=== PATIENT | female | born 1930 | race Caucasian/White ===

== ENCOUNTER 2019-02-25 01:29 | Inpatient (IN) | payer MEDICARE, MEDICAID ==
[~2019-02-25] VITALS: Ht 152.4 cm; Wt 81.6 kg
--- NOTE | 2019-02-25 01:35 | NUR ---
PT [id number] C/O AMS W/ FEVER X 5 HOURS. PER EMS PT AXO3 AND NOW PT IS AXO1. RESPIRATIONS TACHYPNIC AND UNLABORED. PT PUT ON THE DATA STEWARD AND PULSE OX. PENDING EVAL FROM [facility].
--- NOTE | 2019-02-25 01:40 | NUR ---
[facility] AT BEDSIDE.
--- NOTE | 2019-02-25 01:45 | NUR ---
18G LAC IV BLOOD DRAW, SENT TO LAB.
[2019-02-25] MEDS ORDERED: CEFTRIAXONE 1GM BAG (ER ONLY) 50 ML IV ONE ×2 (01:57→02:00)
[2019-02-25] MEDS ORDERED: KETOROLAC TROMETHAMINE INJ 30 MG/ML VIAL ONE (01:58)
[2019-02-25] MEDS ORDERED: KETOROLAC TROMETHAMINE INJ 60 MG/2 ML VIAL IM ONE (01:59)
[2019-02-25] MEDS ORDERED: METHOCARBAMOL (500MG) 500 MG TABLET ONE (01:59)
[2019-02-25 02:00] LABS: BASOPHILS % (AUTO) 0.9 % (0.0-2.0); HEMATOCRIT 35 % (33-45); HEMOGLOBIN 12.1 g/dL (11.5-14.8); LYMPHOCYTES # (AUTO) 0.4 /CMM (0.8-4.8); LYMPHOCYTES % (AUTO) 9.4 % (20.0-44.0); MEAN CORPUSCULAR HGB CONC 34 g/dl (31.0-36.0); MEAN CORPUSCULAR VOLUME 89 fL (82-100); MONOCYTES # (AUTO) 0.2 /CMM (0.1-1.30); MONOCYTES % (AUTO) 5.1 % (2.0-12.0); NEUTROPHILS # (AUTO) 3.9 /CMM (1.8-8.9); NEUTROPHILS % (AUTO) 84.6 % (43.0-81.0); PLATELET COUNT (AUTO) 283 /CMM (150-450); RED BLOOD CELL COUNT(AUTO) 3.94 MIL/uL (4.0-5.2); WHITE BLOOD COUNT (AUTO) 4.6 K/uL (4.3-11.0)
[2019-02-25] MEDS ORDERED: IV NS 0.9% 500 ML BAG IV ONE (02:00)
[2019-02-25 02:19] LABS: ALANINE AMINOTRANSFERASE 18 U/L (12-78); ALBUMIN 3.4 g/dL (3.4-5.0); ALKALINE PHOSPHATASE 75 U/L (46-116); ASPARTATE AMINOTRANSFERASE 22 U/L (15-37); BILIRUBIN,DIRECT 0.1 mg/dL (0.0-0.2); CALCIUM, SERUM 9.4 mg/dL (8.5-10.1); CARBON DIOXIDE 24 mmol/L (21-32); CHLORIDE 100 mmol/L (98-107); CREATININE 1.2 mg/dL (0.6-1.3); GLUCOSE 117 mg/dL (74-106); POTASSIUM 3.7 mmol/L (3.5-5.1); SODIUM SERUM 135 mmol/L (136-145); TOTAL PROTEIN, SERUM 7.3 g/dL (6.4-8.2); UREA NITROGEN, BLOOD 19 mg/dL (7-18)
[2019-02-25 02:23] LABS: APPEARANCE,URINE Clear (CLEAR); BILIRUBIN,URINE Negative (NEGATIVE); BLOOD, URINE Negative Ery/uL (NEGATIVE); COLOR,URINE Yellow (YELLOW); KETONES,URINE Negative (NEGATIVE); LEUKOCYTE ESTERASE ,URINE Negative (NEGATIVE); NITRITE, URINE Negative (NEGATIVE); PH,URINE 8.5 (5.0-8.0); PROTEIN,URINE Negative (NEGATIVE); UGLUCOSE Negative (NEGATIVE); UROBILINOGEN,URINE 0.2 EU/dL (0.2)
[2019-02-25] MEDS ORDERED: CT SWABBABLE VALVE TRANS SET 1 EA INFUS.SET MC ONE (03:58)
[2019-02-25] MEDS ORDERED: IOHEXOL-300 100 ML VIAL IV ONE (03:58)
[2019-02-25] MEDS ORDERED: IV NS 0.9% 250 ML IV ONE (03:59)
--- NOTE | 2019-02-25 04:08 | NUR ---
PT TAKEN TO CT [facility]IA [facility].
--- NOTE | 2019-02-25 06:37 | NUR ---
REPORT GIVEN TO CHIQUIS DAVIDSON FOR [facility].
[2019-02-25] MEDS ORDERED: ONDANSETRON HCL/PF 4 MG/2 ML VIAL IVP PRN (07:00)
[2019-02-25] MEDS ORDERED: ACETAMINOPHEN 325 MG TABLET PO PRN (07:00)
--- NOTE | 2019-02-25 07:00 | NUR ---
MS TELECOMMUNICATION ENGINEER NOTES REPORT GIVEN BY STUART SCHWARTZ IN [facility].RECEIVED PT FROM ER TO ROOM 107 VIA [facility].ALERT/ORIENTED X2-3,GUATEMALAN SPEAKING.ON ROOM AIR,TOLERATING WELL.NO SOB AND ACUTE DISTRESS NOTED.IV LINE IS ON LEFT AC G18 AND RIGHT HAND G20,SL.SITE SI CLEAN,DRY AND INTACT.NO INFILTRATION NOTED.BED IS IN LOW POSITION AND LOCKED.CALL LIGHT IS WITHIN REACH.WILL CONTINUE TO MONITOR THE PT CLOSELY. Addendum: 02/25/19 at 0812 by JESSICA SAXENA RN VITAL SIGNS CHECKED AND RECORDED.SKIN ASSESSMENT IS DONE AND PICTURE HAS TAKEN.CAN TURN AND REPOSITION INDEPENDENTLY.
[2019-02-25] MEDS ORDERED: FEE PK DOSING 1 MIN EA MC ONE (07:24)
[2019-02-25 08:00] VITALS: BP 164/67
[2019-02-25 08:11] LABS: BASOPHILS % (AUTO) 0.3 % (0.0-2.0); HEMATOCRIT 31 % (33-45); HEMOGLOBIN 10.8 g/dL (11.5-14.8); LYMPHOCYTES # (AUTO) 0.7 /CMM (0.8-4.8); LYMPHOCYTES % (AUTO) 20.5 % (20.0-44.0); MEAN CORPUSCULAR HGB CONC 34 g/dl (31.0-36.0); MEAN CORPUSCULAR VOLUME 90 fL (82-100); MONOCYTES # (AUTO) 0.2 /CMM (0.1-1.30); MONOCYTES % (AUTO) 6.2 % (2.0-12.0); NEUTROPHILS # (AUTO) 2.4 /CMM (1.8-8.9); PLATELET COUNT (AUTO) 247 /CMM (150-450); WHITE BLOOD COUNT (AUTO) 3.3 K/uL (4.3-11.0)
[2019-02-25 08:19] LABS: CALCIUM, SERUM 8.6 mg/dL (8.5-10.1); CARBON DIOXIDE 24 mmol/L (21-32); CHLORIDE 104 mmol/L (98-107); CREATININE 1.1 mg/dL (0.6-1.3); GLUCOSE 104 mg/dL (74-106); POTASSIUM 3.6 mmol/L (3.5-5.1); SODIUM SERUM 137 mmol/L (136-145); UREA NITROGEN, BLOOD 15 mg/dL (7-18)
[2019-02-25] MEDS: PANTOPRAZOLE 40 MG TABLET.DR PO SCH (08:23)
[2019-02-25] MEDS ORDERED: AMYL1CAP58 PO (08:31)
[2019-02-25] MEDS ORDERED: BISO10TA PO (08:31)
[2019-02-25] MEDS ORDERED: TRAM50TA2 PO (08:31)
[2019-02-25] MEDS ORDERED: MECL-102 PO (08:31)
[2019-02-25] MEDS ORDERED: CHOL100044 PO (08:31)
[2019-02-25 08:32] LABS: ALANINE AMINOTRANSFERASE 15 U/L (12-78); ALBUMIN 2.8 g/dL (3.4-5.0); ALKALINE PHOSPHATASE 57 U/L (46-116); ASPARTATE AMINOTRANSFERASE 17 U/L (15-37); B-TYPE NATRIURETIC PEPTIDE 293 PG/ML (0-125); BILIRUBIN,TOTAL 0.8 mg/dL (0.2-1.0); CHOLESTEROL 147 mg/dL (<200); HDL CHOLESTEROL 27 mg/dL (40-60); LDL 106 mg/dL (0-99); MAGNESIUM 1.5 mg/dL (1.8-2.4); PHOSPHORUS 3.5 mg/dL (2.5-4.9); THYROID STIMULATING HORMONE 0.582 uIU/mL (0.358-3.74); TOTAL PROTEIN, SERUM 6.1 g/dL (6.4-8.2); TRIGLYCERIDES 96 mg/dL (30-150)
[2019-02-25] MEDS ORDERED: VANCOMYCIN 1 GM in IV D5W 250 ML IV SCH (09:00)
[2019-02-25] MEDS ORDERED: PIPERACILLIN /TAZOBACTAM 3.375 G in IV D5W 50 ML IV ONE (09:00)
[2019-02-25] MEDS: DOCUSATE SODIUM 100 MG CAPSULE PO SCH ×2 (09:08→16:11)
[2019-02-25] MEDS: Magnesium 1GM/D5W 100ML PREMIX 100 ML IV SCH ×2 (11:52→13:07)
[2019-02-25 16:00] VITALS: BP 147/63
--- NOTE | 2019-02-25 16:57 | NUR ---
MS RN NOTES INFLUENZA SWAB FROM RIGHT NARES COLLECTED,PT TOLERATED WELL.LAB MADE AWARE.
[2019-02-25] MEDS ORDERED: PIPERACILLIN /TAZOBACTAM 3.375 G in IV D5W 100 ML IV SCH (17:00)
[2019-02-25] MEDS ORDERED: MECLIZINE HCL 25 MG TABLET PO PRN (17:00)
[2019-02-25] MEDS ORDERED: TRAMADOL HCL 50 MG TABLET PO PRN (17:00)
[2019-02-25] MEDS: CHOLECALCIFEROL 1,000 UNIT TABLET (VIT D3) PO SCH (17:20)
--- NOTE | 2019-02-25 18:49 | NUR ---
MS RN CLOSING NOTES PT IS LYING ON BED WITH IV FLUIDS RUNNING.IV SITE IS C/D/DI/ALERT/ORIENTED X3.CAN AMBULATE WELL WITH ONE PERSON ASSISTANCE.TOLERATING WELL ON ROOM AIR,NO SOB AND ACUTE DISTRESS NOTED.RESPIRATION IS EVEN AND NONLABORED.ALL DUE MEDS ARE GIVEN.ENDORSED TO LABORER MINE RN FOR [facility].
--- NOTE | 2019-02-25 19:03 | NUR ---
MS RN NOTES DANISHA FROM LAB SAID TO RECOLLECT THE FLU SWAB AGAIN IT IS NOT THE ACCURATE COTTON SWAB THAT WE USED.HE SAID WILL BRING THE STERILE COTTON SWABS TO UNIT.ENDORSED TO DROP WORKER RN TO RECOLLECT IT.
--- NOTE | 2019-02-25 19:30 | NUR ---
RN INITIAL NOTES: RECEIVED REPORT FROM JESSICA DAVIDSON. PT A/O X3, MAURITIAN SPEAKING, WITH BASIC [place]STA R[place], ABLE TO MAKE HER NEEDS KNOWN. ON RA RESPIRATIONS EVEN AND UNLABORED. PT REQUESTING TO GO TO THE BATHROOM. ASSISTED TO BATHROOM, AMBULATES WITH 1 ASSIST. PT HAS IV ACCESS PATENT AND FLUSHING WELL, CURRENTLY INFUSING WITH ROCEPHIN EXTENDED INFUSION. SAFETY PRECAUTIONS FOR FALL INITIATED, CALL LIGHT IN REACH, WILL CONTINUE TO MONITOR.
[2019-02-25 20:00] VITALS: BP 183/66
[2019-02-25 22:12] VITALS: BP 138/69
--- NOTE | 2019-02-25 22:19 | NUR ---
rn notes: placed on tele monitoring, per admit to order, pt is telemetry dx sepsis, ams. now sinus rhythm hr 81, pt sleeping, arouses to tactile stimuli, offered snack pt stated only water.
[2019-02-26] VITALS: BP 142/70
--- NOTE | 2019-02-26 | NUR ---
rn notes: assisted to the bathroom
--- NOTE | 2019-02-26 02:08 | NUR ---
rn notes: seen pt sleeping, appears comfortable, respirations even and unlabored, will continue monitoring pt
[2019-02-26 04:00] VITALS: BP 116/70
[2019-02-26 06:28] LABS: CALCIUM, SERUM 8.8 mg/dL (8.5-10.1); CARBON DIOXIDE 27 mmol/L (21-32); CHLORIDE 103 mmol/L (98-107); CREATININE 1.1 mg/dL (0.6-1.3); GLUCOSE 102 mg/dL (74-106); MAGNESIUM 2.2 mg/dL (1.8-2.4); SODIUM SERUM 138 mmol/L (136-145); UREA NITROGEN, BLOOD 13 mg/dL (7-18)
--- NOTE | 2019-02-26 06:37 | NUR ---
RN CLOSING NOTES: PT REMAINS A/O X3, ON RA RESPIRATIONS EVEN AND UNLABORED, SOUND ASLEEP. ON SINUS RHYTHM HR 68. IV ACCESS REMAINS PATENT AND FLUSHING WELL, ON HL. DENIES ANY PAIN OR DISCOMFORT AT THIS TIME. REMAINS AFEBRILE. VS REMAINS STABLE, NEEDS ATTENDED. SAFETY PRECAUTIONS FOR FALL REMAINS ENGAGED, CALL LIGHT IN REACH, WILL ENDORSE TO DAY RN FOR CONTINUITY OF CARE.
--- NOTE | 2019-02-26 07:30 | NUR ---
RN NOTES RECEIVED PATIENT IN BED, A/O X3, ABLE TO MAKE NEEDS KNOWN ON BASIC TURKISH BUT EXPRESSES SELF MORE IN CITIZEN OF [place]. NOT ON ANY FORM OF DISTRESS.NO COMPLAINTS OF PAIN. BREATHING EVEN AND UNLABORED. IV ACCESS NOTED ON THE R HAND AND LAC, IN PLACE AND PATENT. DRESSING CDI. NO SIGNS OF INFILTRATION OR INFECTION NOTED AT THIS TIME. PATIENT ENCOURAGE TO CALL FOR HELP AND ASSISTANCE.. PATIENT AMBULATES BY HERSELF. SAFETY PRECAUTIONS FOR FALL INITIATED, BED RAQUEL AND LOCKED POSITION. CALL LIGHT WITHIN REACH, WILL CONTINUE TO MONITOR AND ANTICIPATE NEEDS.
--- NOTE | 2019-02-26 07:30 | NUR ---
RN NOTES: PATIENT IS IN BED. SHE SPEAKS ONLY MONGOLIAN AND IS AOX4. SHE IS NOT IN DISTRESS, DENIED ANY PAIN. PATIENT REFUSED TO EAT HER BREAKFAST, DRANK JUST TEA. PATIENT WAS EDUCATED TO USE THE CALL LIGHT WHEN SHE NEEDED TO USE THE RESTROOM. SHE IS ABLE TO MAKE HER NEEDS KNOWN. CAREGIVER LATER ARRIVED AT BEDSIDE.
--- NOTE | 2019-02-26 07:46 | NUR ---
WOUND CARE CONSULT: PT REFUSED SKIN ASSESSMENT. PT IS AMBULATORY AND CONTINENT WITH CURRENT JACOB SCORE OF 20. PER ADMISSION ASSESSMENT/PHOTOS PT HAS SKIN GROWTHS ON BACK AND CHEST, PRESENT ON ADMISSION. DEFER TO MD. WILL SEE PRN.
[2019-02-26 08:00] VITALS: BP 108/78
[2019-02-26] MEDS: PANTOPRAZOLE 40 MG TABLET.DR PO SCH (08:30)
[2019-02-26] MEDS: CHOLECALCIFEROL 1,000 UNIT TABLET (VIT D3) PO SCH (08:30)
[2019-02-26] MEDS: DOCUSATE SODIUM 100 MG CAPSULE PO SCH (08:30)
[2019-02-26] MEDS ORDERED: BISOPROLOL FUMARATE 5 MG TABLET PO SCH (09:00)
[2019-02-26 12:00] VITALS: BP 152/50
--- NOTE | 2019-02-26 14:55 | NUR ---
RN NOTES PATIENT DISCHARGED. ALL QUESTIONS AND CONCERNS ADDRESSED APPROPRIATELY. PNEUMONIA VACCINE OFFERED BUT PRIMARY CAREGIVER CLAIMED THAT SHE IS NOT VERY MUCH FAMILIAR WITH VACCINATION STATUS AND THAT SHE'LL FOLLOW UP WITH PRIMARY PHYSICIAN'S OFFICE. ALL DISCHARGE AND MEDICATION INSTRUCTION GIVEN TO THE CAREGIVER.MEDICATION PRESCRIPTION GIVEN TO THE CAREGIVER. ALL VALUABLE ACCOUNTED FOR AND RETURNED BACK TO THE PATIENT. IV ACCESS AND ID BAND REMOVED. PATIENT LEFT PATIENT AMBULATORY ACCOMPANIED BY CARMELO (CAREGIVER).
== END 2019-02-26 14:55 | disposition home or self-care (01) | DRG 871 ==
LOC: ER 01:36 → MEDSG1 06:34 → TELE1 22:20
PROVIDERS: ADMIT Nurse Practitioner Acute Care; ATTEND Nurse Practitioner Acute Care
DX: A41.9 Sepsis, unspecified organism (principal); G93.41 Metabolic encephalopathy; E87.1 Hypo-osmolality and hyponatremia; I10 Essential (primary) hypertension; E86.1 Hypovolemia; E83.42 Hypomagnesemia; M19.90 Unspecified osteoarthritis, unspecified site; Z96.641 Presence of right artificial hip joint
CPT/HCPCS: 36415; 71045-TC; 80048-TC; 80053-TC; 80061-TC; 80076-TC; 81000-TC; 83605-TC; 83735-TC; 83880; 84100-TC; 84443-TC; 84484-TC; 85025-TC; 85730-TC; 87040-TC; 87081-TC; 87086-TC; 93307-TC; 97116-TC; 97530-TC; G0378; J0696; J1885; J2543; J3370; J3475; J7040; J7050; J7060; Q9967